=== PATIENT | female | born 1975 | race Caucasian/White ===

== ENCOUNTER → 2022-12-15 | Outpatient (REF) | LOC: M LABSMTC 11:29 | PROVIDERS: ATTEND Family Medicine | DX: Z11.52 Encounter for screening for COVID-19 (principal) ==

== ENCOUNTER → 2024-08-01 | Outpatient (CLI) | payer OTHER | LOC: M WHC 07:50 | PROVIDERS: ATTEND Obstetrics & Gynecology | DX: N95.0 Postmenopausal bleeding (principal) ==